=== PATIENT | male | born 1975 | race Caucasian/White ===

== ENCOUNTER 2019-03-23 02:38 | Inpatient (IN) | payer OTHER ==
[2019-03-23] MEDS ORDERED: morphine 4 MG/ML VIAL ×2 (02:55→03:04)
[2019-03-23] MEDS ORDERED: ONDANSETRON 4 MG INJ ×2 (02:55→03:04)
[2019-03-23] MEDS: morphine 4 MG/ML VIAL IV (03:05)
[2019-03-23] MEDS: ONDANSETRON 4 MG INJ IV (03:05)
[2019-03-23 05:03] LABS: ADD MAN DIFF? NO; BASOPHIL # 0.2 10^3/ul (0.0-0.1); EOSINOPHILS # 0.2 10^3/ul (0.0-0.5); EOSINOPHILS % 2.4 % (0.0-7.0); HEMATOCRIT 43.5 % (42.0-52.0); HEMOGLOBIN 14.8 g/dl (14.0-18.0); LYMPHOCYTES # 3.8 10^3/ul (0.8-2.9); LYMPHOCYTES % 47.4 % (15.0-51.0); MEAN CORPUSCULAR HEMOGLOBIN 29.2 pg (29.0-33.0); MEAN CORPUSCULAR VOLUME 85.8 fl (82.0-101.0); MEAN PLATELET VOLUME 9.5 fl (7.4-10.4); MONOCYTE # 0.7 10^3/ul (0.3-0.9); MONOCYTES % 8.4 % (0.0-11.0); NEUTROPHIL # 3.2 10^3/ul (1.6-7.5); NEUTROPHILS % 39.5 % (39.0-77.0); PLATELET COUNT 350 10^3/UL (140-415); RED BLOOD COUNT 5.07 10^6/ul (4.70-6.10); RED CELL DISTRIBUTION WIDTH 12.3 % (11.5-14.5)
[2019-03-23 05:10] LABS: ALANINE AMINOTRANSFERASE 24 IU/L (13-69); ALBUMIN 4.2 g/dl (3.3-4.9); ALBUMIN/GLOBULIN RATIO 1.13; ALKALINE PHOSPHATASE 88 IU/L (42-121); ANION GAP 11 (5-13); ASPARTATE AMINO TRANSFERASE 20 IU/L (15-46); BILIRUBIN,INDIRECT 0.4 mg/dl (0-1.1); BILIRUBIN,TOTAL 0.4 mg/dl (0.2-1.3); BLOOD UREA NITROGEN 19 mg/dl (7-20); CALCIUM 9.2 mg/dl (8.4-10.2); CARBON DIOXIDE 22 mmol/L (21-31); CHLORIDE 108 mmol/L (97-110); CREATININE 0.78 mg/dl (0.61-1.24); Estimated GFR > 60 mL/min (>60); GLUCOSE 120 mg/dl (70-220); POTASSIUM 4.1 mmol/L (3.5-5.1); SODIUM 141 mmol/L (135-144); TOTAL PROTEIN 7.9 g/dl (6.1-8.1)
[2019-03-23 05:19] LABS: B-TYPE NATRIURETIC PEPTIDE 645 PG/ML (0-125)
[2019-03-23 05:23] LABS: TROPONIN-I < 0.012 ng/ml (0.000-0.120)
[2019-03-23 12:18] LABS: CREATINE KINASE 51 IU/L (23-200)
[2019-03-23 12:31] LABS: CK-MB 1.03 ng/ml (0.0-2.4); TROPONIN-I < 0.012 ng/ml (0.000-0.120)
[2019-03-23] MEDS: ASPIRIN (EC) 325 MG TAB PO (14:04)
[2019-03-23 15:55] LABS: CREATINE KINASE 50 IU/L (23-200)
[2019-03-23 16:00] LABS: D-DIMER 306.73 ng/ml (<460)
[2019-03-23 16:05] LABS: CK INDEX 2.2; CK-MB 1.12 ng/ml (0.0-2.4)
[2019-03-23 16:08] LABS: TROPONIN-I < 0.012 ng/ml (0.000-0.120)
[2019-03-23] MEDS: metFORMIN 500 MG TAB PO (18:25)
[2019-03-23] MEDS ORDERED: ALBUTEROL 18 GM INHALER INH (19:30)
[2019-03-23] MEDS: ALBUTEROL HFA 8 GM INHALER INH (19:30)
[2019-03-23] MEDS: ATORVASTATIN 20 MG TAB PO (20:34)
[2019-03-23] MEDS: SACUBITRIL/VALSARTAN (24mg-26mg) TABLET PO (20:34)
[2019-03-23] MEDS: NITROGLYCERIN (SL) 0.4 MG TAB SL (20:35)
[2019-03-23] MEDS: ACCU-CHEK XX (20:35)
[2019-03-24] MEDS: ALBUTEROL HFA 8 GM INHALER INH ×6 (01:00→22:19)
[2019-03-24] MEDS: PANTOPRAZOLE SODIUM 20 MG TABEC PO (06:16)
[2019-03-24 06:55] LABS: CHOL/HDL RATIO 4.8 RATIO; HDL CHOLESTEROL 31 mg/dl (27-67); LDL CHOLESTEROL,CALCULATED 71 mg/dl; TRIGLYCERIDES 241 mg/dl (0-149)
[2019-03-24 06:55] LABS: CHOLESTEROL 150 mg/dl (100-200)
[2019-03-24 06:57] LABS: MAGNESIUM 1.9 mg/dl (1.7-2.5)
[2019-03-24] MEDS: ACCU-CHEK XX ×4 (07:00→20:03)
[2019-03-24] MEDS: FLUTICASONE/VILANTEROL 200-25 INH DEVICE INH (08:28)
[2019-03-24] MEDS: SACUBITRIL/VALSARTAN (24mg-26mg) TABLET PO ×2 (08:29→20:03)
[2019-03-24] MEDS: ASPIRIN 81 MG TAB PO (08:29)
[2019-03-24] MEDS: AMIODARONE 200 MG TAB PO ×2 (08:31→12:27)
[2019-03-24] MEDS: metFORMIN 500 MG TAB PO ×2 (08:35→17:33)
[2019-03-24] MEDS: ATORVASTATIN 20 MG TAB PO (20:03)
[2019-03-24] MEDS: ACETAMINOPHEN 325 MG TAB PO (23:09)
[2019-03-25] MEDS: ALBUTEROL HFA 8 GM INHALER INH ×6 (01:20→21:25)
[2019-03-25] MEDS: NITROGLYCERIN (SL) 0.4 MG TAB SL (01:24)
[2019-03-25] MEDS: PANTOPRAZOLE (EC) 40 MG TAB PO (05:14)
[2019-03-25] MEDS: ACCU-CHEK XX ×4 (07:42→21:29)
[2019-03-25] MEDS: metFORMIN 500 MG TAB PO ×2 (07:43→17:22)
[2019-03-25] MEDS: ASPIRIN 81 MG TAB PO (09:10)
[2019-03-25] MEDS: SACUBITRIL/VALSARTAN (24mg-26mg) TABLET PO ×2 (09:10→21:25)
[2019-03-25] MEDS: FLUTICASONE/VILANTEROL 200-25 INH DEVICE INH (09:15)
[2019-03-25] MEDS: AMIODARONE 200 MG TAB PO (12:19)
[2019-03-25] MEDS: ATORVASTATIN 20 MG TAB PO (21:25)
[2019-03-26] MEDS: ALBUTEROL HFA 8 GM INHALER INH ×3 (01:00→09:50)
[2019-03-26] MEDS: PANTOPRAZOLE (EC) 40 MG TAB PO (04:56)
[2019-03-26] MEDS: metFORMIN 500 MG TAB PO (07:23)
[2019-03-26] MEDS: ACCU-CHEK XX ×2 (07:53→11:24)
[2019-03-26] MEDS: FLUTICASONE/VILANTEROL 200-25 INH DEVICE INH (09:50)
[2019-03-26] MEDS ORDERED: LIDOCAINE 4% SOLUTION 50 ML BTL (12:20)
[2019-03-26] MEDS ORDERED: PROPOFOL 40 ML (12:25)
[2019-03-26] MEDS ORDERED: LIDOCAINE 2% (SDV) 5 ML INJ (12:25)
[2019-03-26] MEDS ORDERED: LEVALBUTEROL (NEB) 0.63 MG/3 ML AMP HHN (12:30)
[2019-03-26] MEDS ORDERED: LABETALOL HCL 20MG INJ IV (12:30)
[2019-03-26] MEDS ORDERED: ALBUTEROL 0.083% (NEB) 2.5 MG/3 ML AMP HHN (12:30)
[2019-03-26] MEDS ORDERED: EPHEDrine 25 MG/5 ML SYG IV (12:30)
[2019-03-26] MEDS ORDERED: hydrALAzine 20 MG INJ IV (12:30)
== END 2019-03-26 18:20 | disposition home or self-care (01) | DRG 313 ==
LOC: E/R 02:38 → 6WM 04:36
PROC: 0DB68ZX Excision of Stomach, Via Natural or Artificial Opening Endoscopic, Diagnostic (ICD-10-PCS; principal; 2019-03-26 11:25)
DX: R07.9 Chest pain, unspecified (principal); I42.8 Other cardiomyopathies; I50.20 Unspecified systolic (congestive) heart failure; K29.00 Acute gastritis without bleeding; Z95.810 Presence of automatic (implantable) cardiac defibrillator; E11.9 Type 2 diabetes mellitus without complications; I25.2 Old myocardial infarction; K21.9 Gastro-esophageal reflux disease without esophagitis; I11.0 Hypertensive heart disease with heart failure
CPT/HCPCS: 36415; 71045; 80053; 80061; 82550; 82553; 82962; 83735; 83880; 84484; 85025; 85378; 88305; 88312; 93005; 93306; 93308; 96374; 96375; 99217; 99285-25; G0378

== ENCOUNTER 2019-04-01 09:55 | Inpatient (IN) | payer OTHER ==
[2019-04-01] MEDS: NITROGLYCERIN 2% 1 GM OINT PKT TD (11:14)
[2019-04-01] MEDS: ASPIRIN 325 MG TAB PO (11:15)
[2019-04-01] MEDS: SOD CHLORIDE 0.9% 1,000 ML IV ×2 (11:19→12:20)
[2019-04-01 11:20] LABS: ADD MAN DIFF? NO
[2019-04-01 11:22] LABS: BASOPHIL # 0.2 10^3/ul (0.0-0.1); BASOPHILS % 1.9 % (0.0-2.0); EOSINOPHILS # 0.2 10^3/ul (0.0-0.5); EOSINOPHILS % 2.5 % (0.0-7.0); HEMOGLOBIN 14.6 g/dl (14.0-18.0); LYMPHOCYTES # 2.9 10^3/ul (0.8-2.9); LYMPHOCYTES % 36.6 % (15.0-51.0); MEAN CORPUSCULAR HEMOGLOBIN 29.1 pg (29.0-33.0); MEAN CORPUSCULAR VOLUME 85.7 fl (82.0-101.0); MEAN PLATELET VOLUME 9.1 fl (7.4-10.4); MONOCYTE # 0.7 10^3/ul (0.3-0.9); MONOCYTES % 8.3 % (0.0-11.0); NEUTROPHILS % 50.4 % (39.0-77.0); PLATELET COUNT 336 10^3/UL (140-415); RED BLOOD COUNT 5.02 10^6/ul (4.70-6.10); RED CELL DISTRIBUTION WIDTH 12.3 % (11.5-14.5)
[2019-04-01] MEDS: FENTAnyl 50 MCG/ML VIAL IV (11:23)
[2019-04-01 11:43] LABS: INR 1.05; PROTIME 13.8 Sec (11.9-14.9); PT RATIO 1.1
[2019-04-01 11:44] LABS: PARTIAL THROMBOPLASTIN TIME 31.3 Sec (23.0-35.0)
[2019-04-01 11:48] LABS: ALANINE AMINOTRANSFERASE 26 IU/L (13-69); ALBUMIN 4.3 g/dl (3.3-4.9); ALBUMIN/GLOBULIN RATIO 1.22; ALKALINE PHOSPHATASE 90 IU/L (42-121); ANION GAP 11 (5-13); ASPARTATE AMINO TRANSFERASE 19 IU/L (15-46); BILIRUBIN,INDIRECT 0.6 mg/dl (0-1.1); BILIRUBIN,TOTAL 0.6 mg/dl (0.2-1.3); BLOOD UREA NITROGEN 16 mg/dl (7-20); CALCIUM 9.5 mg/dl (8.4-10.2); CARBON DIOXIDE 24 mmol/L (21-31); CHLORIDE 106 mmol/L (97-110); CREATINE KINASE 50 IU/L (23-200); CREATININE 0.66 mg/dl (0.61-1.24); Estimated GFR > 60 mL/min (>60); GLUCOSE 109 mg/dl (70-220); SODIUM 141 mmol/L (135-144); TOTAL PROTEIN 7.8 g/dl (6.1-8.1)
[2019-04-01 11:58] LABS: B-TYPE NATRIURETIC PEPTIDE 602 PG/ML (0-125); CK INDEX 1.6; CK-MB 0.79 ng/ml (0.0-2.4); TROPONIN-I < 0.012 ng/ml (0.000-0.120)
[2019-04-01 12:04] LABS: POTASSIUM 4.1 mmol/L (3.5-5.1)
[2019-04-01] MEDS ORDERED: ONDANSETRON 4 MG INJ IV (13:30)
[2019-04-01] MEDS ORDERED: ALBUTEROL 18 GM INHALER INH (17:00)
[2019-04-01] MEDS: INSULIN ASPART [NOVOLOG] 3 ML PEN SC ×2 (17:39→20:33)
[2019-04-01] MEDS: ALBUTEROL HFA 8 GM INHALER INH ×2 (17:39→20:26)
[2019-04-01] MEDS: metFORMIN 500 MG TAB PO (17:39)
[2019-04-01] MEDS ORDERED: DEXTROSE 50% 50 ML SYRINGE IV ×2 (18:00)
[2019-04-01] MEDS ORDERED: GLUCOSE GEL 15 GRAM TUBE BUCCAL (18:00)
[2019-04-01] MEDS ORDERED: GLUCOSE GEL 15 GRAM TUBE PO ×2 (18:00)
[2019-04-01] MEDS ORDERED: GLUCAGON 1 MG INJ IM (18:00)
[2019-04-01 19:23] LABS: TROPONIN-I < 0.012 ng/ml (0.000-0.120)
[2019-04-01] MEDS: ATORVASTATIN 20 MG TAB PO (20:27)
[2019-04-01] MEDS: SACUBITRIL/VALSARTAN (24mg-26mg) TABLET PO (20:27)
[2019-04-01] MEDS: ACETAMINOPHEN 325 MG TAB PO (22:25)
[2019-04-02] MEDS: ALBUTEROL HFA 8 GM INHALER INH ×6 (01:00→21:26)
[2019-04-02] MEDS: ACCU-CHEK XX (02:00)
[2019-04-02 02:38] LABS: TROPONIN-I < 0.012 ng/ml (0.000-0.120)
[2019-04-02] MEDS: PANTOPRAZOLE (EC) 40 MG TAB PO (06:45)
[2019-04-02] MEDS: INSULIN ASPART [NOVOLOG] 3 ML PEN SC ×4 (07:48→20:23)
[2019-04-02] MEDS: FLUTICASONE/VILANTEROL 100-25 INH (08:19)
[2019-04-02] MEDS: SACUBITRIL/VALSARTAN (24mg-26mg) TABLET PO ×2 (08:19→20:24)
[2019-04-02] MEDS: ASPIRIN (EC) 81 MG TAB PO (08:19)
[2019-04-02] MEDS: CLOPIDOGREL 75 MG TAB PO (08:20)
[2019-04-02] MEDS: ACETAMINOPHEN 325 MG TAB PO (08:23)
[2019-04-02] MEDS: metFORMIN 500 MG TAB PO ×2 (08:36→17:07)
[2019-04-02] MEDS: morphine 2 MG INJ IV (09:45)
[2019-04-02] MEDS: ATORVASTATIN 20 MG TAB PO (20:23)
[2019-04-03] MEDS: ALBUTEROL HFA 8 GM INHALER INH ×6 (01:00→20:40)
[2019-04-03] MEDS: ACCU-CHEK XX (01:59)
[2019-04-03] MEDS: PANTOPRAZOLE (EC) 40 MG TAB PO (05:26)
[2019-04-03] MEDS: INSULIN ASPART [NOVOLOG] 3 ML PEN SC ×4 (08:00→20:37)
[2019-04-03] MEDS: metFORMIN 500 MG TAB PO ×2 (08:30→17:04)
[2019-04-03] MEDS: SACUBITRIL/VALSARTAN (24mg-26mg) TABLET PO ×2 (08:32→20:35)
[2019-04-03] MEDS: ASPIRIN (EC) 81 MG TAB PO (08:33)
[2019-04-03] MEDS: CLOPIDOGREL 75 MG TAB PO (08:33)
[2019-04-03] MEDS: FLUTICASONE/VILANTEROL 100-25 INH (08:34)
[2019-04-03] MEDS: ATORVASTATIN 20 MG TAB PO (20:35)
[2019-04-03] MEDS: ACETAMINOPHEN 325 MG TAB PO (23:02)
[2019-04-04] MEDS: ALBUTEROL HFA 8 GM INHALER INH ×6 (01:00→20:34)
[2019-04-04] MEDS: ACCU-CHEK XX (02:34)
[2019-04-04] MEDS: PANTOPRAZOLE (EC) 40 MG TAB PO (05:11)
[2019-04-04] MEDS: INSULIN ASPART [NOVOLOG] 3 ML PEN SC ×4 (08:00→20:34)
[2019-04-04] MEDS: CLOPIDOGREL 75 MG TAB PO (08:18)
[2019-04-04] MEDS: ASPIRIN (EC) 81 MG TAB PO (08:18)
[2019-04-04] MEDS: metFORMIN 500 MG TAB PO ×2 (08:18→16:53)
[2019-04-04] MEDS: SACUBITRIL/VALSARTAN (24mg-26mg) TABLET PO ×2 (08:18→20:31)
[2019-04-04] MEDS: FLUTICASONE/VILANTEROL 100-25 INH (08:21)
[2019-04-04] MEDS: ATORVASTATIN 20 MG TAB PO (20:31)
[2019-04-04] MEDS: ACETAMINOPHEN 325 MG TAB PO (21:42)
[2019-04-05] MEDS: ALBUTEROL HFA 8 GM INHALER INH ×4 (01:09→12:01)
[2019-04-05] MEDS: ACCU-CHEK XX (02:00)
[2019-04-05] MEDS: PANTOPRAZOLE (EC) 40 MG TAB PO (06:22)
[2019-04-05] MEDS: INSULIN ASPART [NOVOLOG] 3 ML PEN SC ×2 (07:40→12:00)
[2019-04-05] MEDS: metFORMIN 500 MG TAB PO (07:41)
[2019-04-05] MEDS: SACUBITRIL/VALSARTAN (24mg-26mg) TABLET PO (08:21)
[2019-04-05] MEDS: CLOPIDOGREL 75 MG TAB PO (08:21)
[2019-04-05] MEDS: ASPIRIN (EC) 81 MG TAB PO (08:21)
[2019-04-05] MEDS: FLUTICASONE/VILANTEROL 100-25 INH (08:21)
== END 2019-04-05 16:24 | disposition home or self-care (01) | DRG 313 ==
LOC: E/R 09:55 → 6WM 13:18
DX: R07.9 Chest pain, unspecified (principal); I50.23 Acute on chronic systolic (congestive) heart failure; I42.8 Other cardiomyopathies; I11.0 Hypertensive heart disease with heart failure; E11.8 Type 2 diabetes mellitus with unspecified complications; Z95.810 Presence of automatic (implantable) cardiac defibrillator; K29.70 Gastritis, unspecified, without bleeding; E78.5 Hyperlipidemia, unspecified; Z79.82 Long term (current) use of aspirin
CPT/HCPCS: 71045; 80053; 82550; 82553; 82962; 83880; 84484; 85025; 85610; 85730; 87081; 93005; 93308; 96361; 96374; 99285-25; G0378

== ENCOUNTER 2019-04-29 12:09 | Observation (INO) | payer OTHER ==
[2019-04-29] MEDS ORDERED: NITROGLYCERIN (SL) 0.4 MG TAB SL (13:00)
[2019-04-29 13:03] LABS: ADD MAN DIFF? NO
[2019-04-29 13:08] LABS: BASOPHIL # 0.1 10^3/ul (0.0-0.1); BASOPHILS % 1.4 % (0.0-2.0); EOSINOPHILS # 0.2 10^3/ul (0.0-0.5); EOSINOPHILS % 2.2 % (0.0-7.0); HEMATOCRIT 40.1 % (42.0-52.0); HEMOGLOBIN 13.8 g/dl (14.0-18.0); LYMPHOCYTES # 2.9 10^3/ul (0.8-2.9); LYMPHOCYTES % 30.8 % (15.0-51.0); MEAN CORPUSCULAR HEMOGLOBIN 29.4 pg (29.0-33.0); MEAN CORPUSCULAR HGB CONC 34.4 g/dl (32.0-37.0); MEAN CORPUSCULAR VOLUME 85.3 fl (82.0-101.0); MONOCYTE # 0.8 10^3/ul (0.3-0.9); MONOCYTES % 8.8 % (0.0-11.0); NEUTROPHIL # 5.4 10^3/ul (1.6-7.5); NEUTROPHILS % 56.4 % (39.0-77.0); PLATELET COUNT 324 10^3/UL (140-415); RED CELL DISTRIBUTION WIDTH 12.8 % (11.5-14.5)
[2019-04-29 13:08] LABS: WHITE BLOOD COUNT 9.5 10^3/ul (4.8-10.8)
[2019-04-29] MEDS: NITROGLYCERIN 2% 1 GM OINT PKT TD (13:14)
[2019-04-29] MEDS: ASPIRIN 81 MG TAB PO (13:15)
[2019-04-29] MEDS: ACETAMINOPHEN 325 MG TAB PO (13:15)
[2019-04-29] MEDS: ONDANSETRON 4 MG INJ IV (13:21)
[2019-04-29] MEDS: morphine 4 MG/ML VIAL IV (13:21)
[2019-04-29 13:28] LABS: ANION GAP 11 (5-13); BLOOD UREA NITROGEN 12 mg/dl (7-20); CALCIUM 9.2 mg/dl (8.4-10.2); CARBON DIOXIDE 24 mmol/L (21-31); CHLORIDE 105 mmol/L (97-110); CREATININE 0.63 mg/dl (0.61-1.24); Estimated GFR > 60 mL/min (>60); GLUCOSE 120 mg/dl (70-220); POTASSIUM 4.5 mmol/L (3.5-5.1); SODIUM 140 mmol/L (135-144)
[2019-04-29 13:40] LABS: TROPONIN-I < 0.012 ng/ml (0.000-0.120)
[2019-04-29] MEDS ORDERED: ONDANSETRON 4 MG INJ IV (14:00)
[2019-04-29] MEDS ORDERED: ACETAMINOPHEN 325 MG TAB PO (14:00)
[2019-04-29] MEDS ORDERED: ALBUTEROL 18 GM INHALER INH (17:30)
[2019-04-29] MEDS ORDERED: GLUCAGON 1 MG INJ IM (18:00)
[2019-04-29] MEDS ORDERED: DEXTROSE 50% 50 ML SYRINGE IV ×2 (18:00)
[2019-04-29] MEDS ORDERED: GLUCOSE GEL 15 GRAM TUBE PO ×2 (18:00)
[2019-04-29] MEDS ORDERED: GLUCOSE GEL 15 GRAM TUBE BUCCAL (18:00)
[2019-04-29] MEDS: metFORMIN 500 MG TAB PO (18:06)
[2019-04-29] MEDS: ATORVASTATIN 40 MG TAB PO (20:32)
[2019-04-29 20:36] LABS: CREATINE KINASE 61 IU/L (23-200)
[2019-04-29 20:48] LABS: CK INDEX 2.2; CK-MB 1.33 ng/ml (0.0-2.4); TROPONIN-I < 0.012 ng/ml (0.000-0.120)
[2019-04-29] MEDS: INSULIN ASPART [NOVOLOG] 3 ML PEN SC (21:00)
[2019-04-29] MEDS: ALBUTEROL HFA 8 GM INHALER INH (21:00)
[2019-04-30 01:15] LABS: CREATINE KINASE 74 IU/L (23-200)
[2019-04-30 01:27] LABS: CK INDEX 2.2; TROPONIN-I < 0.012 ng/ml (0.000-0.120)
[2019-04-30] MEDS: ALBUTEROL HFA 8 GM INHALER INH ×6 (01:30→21:38)
[2019-04-30] MEDS: ACCU-CHEK XX (02:00)
[2019-04-30] MEDS: PANTOPRAZOLE (EC) 40 MG TAB PO (06:02)
[2019-04-30] MEDS: metFORMIN 500 MG TAB PO ×2 (07:52→17:18)
[2019-04-30] MEDS: INSULIN ASPART [NOVOLOG] 3 ML PEN SC ×4 (07:54→21:00)
[2019-04-30] MEDS: FLUTICASONE/VILANTEROL 100-25 INH (09:12)
[2019-04-30] MEDS: CLOPIDOGREL 75 MG TAB PO (09:12)
[2019-04-30] MEDS: ISOSORBIDE MONONITRATE(SR)60 MG TAB PO (09:12)
[2019-04-30] MEDS: ASPIRIN (EC) 81 MG TAB PO (09:12)
[2019-04-30] MEDS: ACETAMINOPHEN 325 MG TAB PO ×3 (11:35→21:38)
[2019-04-30] MEDS: SACUBITRIL/VALSARTAN (24mg-26mg) TABLET PO ×2 (13:06→21:38)
[2019-04-30] MEDS ORDERED: KETOROLAC 30 MG INJ IV (16:40)
[2019-04-30] MEDS: morphine 2 MG INJ IV (17:16)
[2019-04-30] MEDS: ATORVASTATIN 40 MG TAB PO (21:38)
[2019-05-01] MEDS: ALBUTEROL HFA 8 GM INHALER INH ×3 (01:41→08:19)
[2019-05-01] MEDS: ACCU-CHEK XX (02:00)
[2019-05-01] MEDS: morphine 2 MG INJ IV (02:36)
[2019-05-01] MEDS: PANTOPRAZOLE (EC) 40 MG TAB PO (05:31)
[2019-05-01] MEDS: INSULIN ASPART [NOVOLOG] 3 ML PEN SC (07:55)
[2019-05-01] MEDS: ISOSORBIDE MONONITRATE(SR)60 MG TAB PO (08:17)
[2019-05-01] MEDS: metFORMIN 500 MG TAB PO (08:17)
[2019-05-01] MEDS: ASPIRIN (EC) 81 MG TAB PO (08:17)
[2019-05-01] MEDS: CLOPIDOGREL 75 MG TAB PO (08:17)
[2019-05-01] MEDS: SACUBITRIL/VALSARTAN (24mg-26mg) TABLET PO (08:17)
[2019-05-01] MEDS: FLUTICASONE/VILANTEROL 100-25 INH (08:18)
== END 2019-05-01 12:00 | disposition home or self-care (01) ==
LOC: E/R 12:09 → TEL 13:55
DX: R07.9 Chest pain, unspecified (principal); I25.10 Atherosclerotic heart disease of native coronary artery without angina pectoris; E11.9 Type 2 diabetes mellitus without complications; J45.909 Unspecified asthma, uncomplicated; I11.0 Hypertensive heart disease with heart failure; I50.20 Unspecified systolic (congestive) heart failure; I42.9 Cardiomyopathy, unspecified; E78.5 Hyperlipidemia, unspecified; K29.70 Gastritis, unspecified, without bleeding; R51 Headache; Z95.810 Presence of automatic (implantable) cardiac defibrillator; Z79.82 Long term (current) use of aspirin; Z79.84 Long term (current) use of oral hypoglycemic drugs
CPT/HCPCS: 36415; 70450; 71045; 80048; 82550; 82553; 82962; 84484; 85025; 93005; 96374; 96375; 99285-25; G0378